=== PATIENT | male | born 1955 | race Caucasian/White ===

== ENCOUNTER 2017-04-09 15:35 | Emergency (ER) | payer MEDICAID ==
[2017-04-09 15:36] VITALS: BMI 25.0
--- NOTE | 2017-04-09 16:18 | ED PDOC ---
HPI: Skin/Bite Injury Time Seen by Provider: 04/09/17 16:00 Chief Complaint (Nursing): Abnormal Skin Integrity History Per: Patient History/Exam Limitations: no limitations Onset/Duration Of Symptoms: Other (1 month) Current Symptoms Are (Timing): Still Present Location Of Injury: Right: Leg (redness) Quality Of Symptoms: Painful, Itching Additional Complaint(s): 61 year old male with PMH DM, presents to ED for evaluation of painful area of skin to right lower leg for one month. He reports area is sometimes itchy and hot to touch, gets larger and then smaller. He was seen by PCP and given antibiotics and finished 10 day course of Augmentin. He states area looks only slightly better. Denies fever or drainage. PCP Sobeida Rosales Past Medical History Reviewed: Historical Data, Nursing Documentation, Vital Signs Vital Signs: Last Vital Signs Temp 98.1 F 04/09/17 15:46 Pulse 76 04/09/17 15:46 Resp 16 04/09/17 15:46 BP 120/65 04/09/17 15:46 Pulse Ox 100 04/09/17 18:30 - Medical History PMH: Diabetes, HTN, Hypercholesterolemia - Family History Family History: States: Unknown Family Hx - Living Arrangements Living Arrangements: With Family - Immunization History Hx Tetanus Toxoid Vaccination: No Hx Influenza Vaccination: No Hx Pneumococcal Vaccination: No - Home Medications Home Medications: Ambulatory Orders Medication Instructions Recorded Cephalexin [Keflex] 500 mg PO TID #21 cap 01/01/16 Enbrel 01/01/16 Sulfamethoxazole/Trimethoprim 1 tab PO BID #14 tab 04/09/17 [Bactrim DS 800 mg-160 mg] - Allergies Allergies/Adverse Reactions: Allergies Allergy/AdvReac Type Severity Reaction Status Date / Time No Known Allergies Allergy Verified 04/09/17 15:46 Review of Systems Constitutional: Negative for: Fever Eyes: Negative for: Vision Change Cardiovascular: Negative for: Chest Pain, Palpitations Respiratory: Negative for: Cough, Shortness of Breath Gastrointestinal: Negative for: Vomiting, Abdominal Pain, Diarrhea Genitourinary Male: Negative for: Hematuria Musculoskeletal: Positive for: Leg Pain. Negative for: Back Pain Skin: Positive for: Other (redness and swelling to leg) Neurological: Negative for: Weakness, Numbness, Headache Physical Exam - Reviewed Nursing Documentation Reviewed: Yes Vital Signs Reviewed: Yes - Physical Exam Appears: Positive for: Non-toxic, No Acute Distress. Negative for: Uncomfortable Head Exam: Positive for: ATRAUMATIC, NORMAL INSPECTION, NORMOCEPHALIC Skin: Positive for: Warm, Dry Eye Exam: Positive for: Normal appearance Neck: Positive for: Painless ROM Cardiovascular/Chest: Positive for: Regular Rate, Rhythm Respiratory: Positive for: Normal Breath Sounds. Negative for: Wheezing, Respiratory Distress Extremity: Positive for: Normal ROM, Other (Right lower extremity: 2 erythematous lesions tender and indurated with surrounding erythema to medial lower calf and ankle. No discharge or fluctuance.). Negative for: Calf Tenderness, Deformity Neurologic/Psych: Positive for: Alert, Oriented - Laboratory Results Result Diagrams: 04/09/17 16:20 04/09/17 16:20 - ECG O2 Sat by Pulse Oximetry: 100 Medical Decision Making Medical Decision Making: Impression: Cellulitis, early abscess Prior records reviewed: Patient was seen at [facility] 12/31/16 for rash to bilateral ankles and treated for thrombophlebitis and cellulitis with Keflex Plan: * Labs Progress: Labs reviewed and unremarkable, no leukocytosis. [address] Landin who also examined patient at bedside. She recommended US and IV Vanco 1830 Patient goes for venous doppler 1849 US report: No evidence of deep venous thrombosis in the right lower extremity. 1854 Case and results discussed with Dr Landin, who agrees patient stable for discharge with rx Bactrim 1900 Patient reevaluated and resting comfortably in no distress. No fever. Discussed results with patient who feels comfortble going home and will be discharged with Rx. Disposition - Clinical Impression Clinical Impression: Cellulitis of right leg - Patient ED Disposition Is Patient to be Admitted: No Counseled Patient/Family Regarding: Studies Performed, Diagnosis, Need For Followup, Rx Given - Disposition Referrals: Sobeida Pike MD [Medical Doctor] - Disposition: Routine/Home Disposition Time: 19:02 Condition: STABLE Additional Instructions: Your labs and ultrasound were negative Please take antibiotic twice daily for 1 week Apply warm compress to area Follow up with your doctor for further evaluation Prescriptions: Sulfamethoxazole/Trimethoprim [Bactrim DS 800 mg-160 mg] 1 tab PO BID #14 tab Instructions: Cellulitis (DC) Forms: [facility] (N[place]alese) - POA Present On Arrival: None
[2017-04-09 16:36] LABS: BASO % 0.4 % (0.0-2.0); EOS # 0.1 K/uL (0.0-0.7); EOS % 0.8 % (0.0-4.0); HEMATOCRIT 40.3 % (35.0-51.0); LYMPH # 2.8 K/uL (1.0-4.3); LYMPH % 27.7 % (20.0-40.0); MEAN CELL VOLUME 81.7 fl (80.0-94.0); MEAN CORPUSCULAR HEMOGLOBIN 26.9 pg (27.0-31.0); MEAN CORPUSCULAR HGB CONC 32.9 g/dL (33.0-37.0); MEAN PLATELET VOLUME 7.9 fl (7.2-11.7); MONO # 0.8 K/uL (0.0-0.8); NEUT # 6.3 K/uL (1.8-7.0); NEUT % 63.1 % (50.0-75.0); NRBC % 0.1 % (0.0-0.0); RED CELL DISTRIBUTION WIDTH 13.6 % (11.5-14.5); WHITE BLOOD COUNT 9.9 K/uL (4.8-10.8)
[2017-04-09 16:45] LABS: BLOOD UREA NITROGEN 24 mg/dl (9-20); CALCIUM 9.4 mg/dL (8.4-10.2); CARBON DIOXIDE 29 mmol/L (22-30); CHLORIDE 102 mmol/L (98-107); GFR AFRICAN-AMERICAN > 60; GLUCOSE,RANDOM 106 mg/dL (75-110); SODIUM 139 mmol/l (132-148)
[2017-04-09] MEDS ORDERED: Vancomycin 1 g Inj ONE (17:31)
--- NOTE | 2017-04-09 18:51 | US ---
PROCEDURE: Right lower extremity venous duplex Doppler. HISTORY: leg swelling, redness and pain COMPARISON: None available. TECHNIQUE: Common femoral, superficial femoral, popliteal and posterior tibial veins were evaluated. Flow was assessed with color Doppler, compressibility, assessment of phasic flow and augmentation response. FINDINGS: COMMON FEMORAL VEIN: There is normal direction of flow, compressibility and augmentation response. SUPERFICIAL FEMORAL VEIN: There is normal direction of flow, compressibility and augmentation response. POPLITEAL VEIN: There is normal direction of flow, compressibility and augmentation response. POSTERIOR TIBIAL VEIN: There is normal direction of flow, compressibility and augmentation response. OTHER FINDINGS: None. IMPRESSION: No evidence of deep venous thrombosis in the right lower extremity.
[2017-04-09 20:07] VITALS: BP 126/82; PULSE 82; RESP 17; TEMP 98.2; O2SAT 99
== END 2017-04-09 19:36 | disposition home or self-care (01) ==
LOC: H.ER 15:35
DX: L03.115 Cellulitis of right lower limb (principal); E11.9 Type 2 diabetes mellitus without complications; I10 Essential (primary) hypertension
CPT/HCPCS: 80048; 85025; 93971; 96365; 96366; 96375; 99284; J1885